=== PATIENT | male | born 1995 | race Hispanic/Latino ===

== ENCOUNTER 2020-04-19 12:55 | Emergency (ER) | payer SELFPAY ==
[2020-04-19] MEDS ORDERED: Ketorolac Tromethamine 30 MG/ML VIAL ONE (13:55)
[2020-04-19] MEDS ORDERED: Cyclobenzaprine 10 MG TAB ONE (13:55)
--- NOTE | 2020-04-19 14:00 | CT ---
CT lumbar spine noncontrast: 04/19/2020 HISTORY: 24-year-old male with acute traumatic low back pain after 10 foot fall 3 days ago COMPARISON: None FINDINGS: No hematoma in the retroperitoneum or perivertebral spaces. No hydronephrosis. There are 5 lumbar-typ e vertebrae. Vertebral body heights are maintained. No spondylolisthesis or spondylolysis. 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 This is exacerbated by spondylosis at several levels. No high-grade facet DJD at any level. T11-12: Focal central disc-osteophyte complex protrudes into the spinal canal, exacerbating the devel opmentally small caliber spinal canal, causing moderate central spinal canal stenosis. There appears to be a soft tissue density mass at midline and to the right of midline at the anterior aspec t of the spinal canal at the T12 level. This could be artifact related to large body habitus. The other possibility is inferiorly migrated disc extrusion. T12-L1: No additional findings L1-2: Mild disc space narrowing. Schmorl's nodes. Central focal disc-osteophyte complex protrudes int o the spinal canal, causing moderate central spinal canal stenosis. No high-grade neural foraminal stenosis. L2-3: No additional findings. L3-4: Mild disc space narrowing and mild endplate irregularity. Prominent partially calcified diffuse disc bulge exacerbates the developmentally small caliber spinal canal. This causes moderate to severe central spinal canal stenosis and severe thecal sac stenosis. Mild bilateral neural foraminal stenosis. L4-5: Prominent diffuse disc bulge exacerbates the developmentally small caliber spinal canal. Modera te bilateral neural foraminal stenosis, right greater than left. Moderate to severe central spinal canal stenosis. Severe thecal sac stenosis. L5-S1: Moderate disc space narrowing. Vacuum disc phenomenon. Diffuse disc bulge. Superimposed focal central disc herniation abuts the bilateral S1 nerve roots. At least mild central spinal canal stenosis. Moderate to severe bilateral neural foraminal stenosis. IMPRESSION: 1. No compression fracture. 2) despite patient's young age of 24, there is lumbar spondylosis, with multilevel degenerative disc disease exacerbating a developmentally small caliber spinal canal, resulting in multiple levels of significant central spinal canal stenosis, and lower level bilateral neural foraminal stenosis. This includes disc bulges and disc herniations.
--- NOTE | 2020-04-19 14:17 | CT ---
CT thoracic spine noncontrast: 04/19/2020 HISTORY: 24-year-old male with acute persistent posttraumatic mid back pain after fall 2010 feet 3 days ago. FINDINGS: There are 12 standard rib bearing thoracic type vertebrae. Vertebral body heights are maintained. No acute fracture lucency. There is multilevel mild and moderate degenerative disc disease, manifested by endplate irregularity and sclerosis, at various levels in the mid and lower thoracic spine. The mo st notable protrusions of focal disc-osteophyte complexes indenting the ventral surface of the thecal sac at midline, include T5-6, T6-7, T7-8 (this one is Central, left paracentral, and left late ral disc extrusion) T10-11 (shallow broad-based,), and T8 11-12, where there is a central disc-osteophyte complex with questionable inferior migration of noncalcified extruded disc material d own to the pedicle level of T12. Evaluation of the spinal canal contents is difficult, especially because of body habitus. Lung bases are clear. No hematoma in the perivertebral spaces. IMPRESSION: 1. No acute compression fracture. 2. Despite patient's young age of 24 years, there is multilevel degenerative disc disease, with multi ple moderate sized disc-osteophyte complexes, and possible disc extrusions, protruding into the spinal canal
[2020-04-19] MEDS ORDERED: HYDROcodone/Acetaminophen 10/325 mg Tablet ONE (14:37)
--- NOTE | 2020-04-19 15:52 | RAD ---
LEFT ANKLE THREE VIEW: 04/19/20 INDICATION: History of fall with ankle pain. COMPARISON: None. FINDINGS: There is soft tissue gas within the heel pad of the left foot which may reflect a laceration. No defi nite acute fracture is grossly evident. IMPRESSION: Soft tissue gas within the heel pad of the left foot may reflect a heel laceration. Recommend correla tion. No radiopaque foreign body is evident. No definite acute fracture is evident involving the ankl e. There is some foreshortening of the talar neck on the lateral projection may be related to project ion. Dedicated radiographs of the left foot are recommended. POS: BH
--- NOTE | 2020-04-19 15:54 | RAD ---
RIGHT ANKLE THREE VIEWS: 04/19/20 INDICATION: History of fall ten feet with bilateral ankle pain. COMPARISON: None. FINDINGS: There is advanced osteoarthritic change involving the right mid foot. No definite acute fracture is e vident. There is suggestion of a possible chronic appearing navicular fracture versus advanced degene rative change. Recommend dedicated right foot radiographs for additional evaluation. IMPRESSION: 1. No acute fracture or subluxation involving the right ankle. 2. Advanced right midfoot osteoarthritic change with suggestion of a possible navicular fracture . Dedicated views of the right foot are recommended. POS:
--- NOTE | 2020-04-19 16:08 | RAD ---
LEFT FOOT: 04/19/20 Three views. HISTORY: Fall with injury/trauma left foot. FINDINGS: The tarsals appear intact. Metatarsals and phalanges appear intact. IMPRESSION: No acute fracture identified. POS: AGW
--- NOTE | 2020-04-19 18:57 | RAD ---
EXAM: RIGHT FOOT THREE VIEWS: 04/19/20 HISTORY: Injury from trauma, fall ten feet. FINDINGS: There is a very sclerotic appearing tarsonavicular bone with arthrosis involving the talonavicular an d talocuboid and navicular cuneiform joints, evidence for probable secondary arthrosis. The tarsonavi cular bone is thin possibly related to old trauma versus episode of prior osteonecrosis. No evidence for acute fracture or dislocation. 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 No evidence for acute fracture or dislocation. Secondary ost eoarthrosis changes. POS: RRE
== END 2020-04-19 16:10 | disposition home or self-care (01) ==
LOC: ERS 12:55
DX: M54.5 Low back pain (principal); M25.572 Pain in left ankle and joints of left foot; M25.571 Pain in right ankle and joints of right foot; W17.89XA Other fall from one level to another, initial encounter; Y92.69 Other specified industrial and construction area as the place of occurrence of the external cause
CPT/HCPCS: 72128; 72131; 96372; J1885